=== PATIENT | female | born 1950 | race Caucasian/White ===

== ENCOUNTER 2020-01-22 07:56 | Outpatient (CLI) | payer MEDICARE, OTHER ==
[2020-01-23 12:25] LABS: SARS-CoV-2 MS2 Positive; SARS-CoV-2 N Gene Negative; SARS-CoV-2 S Gene Negative; SARS-CoV-2 by NAA Not Detected (NotDetected); SARS-CoV-2 orf1ab Negative
== END 2020-01-22 07:57 | disposition home or self-care (01) ==
LOC: LABBT 07:56
PROVIDERS: ATTEND Family Medicine
DX: H35.341 Macular cyst, hole, or pseudohole, right eye (principal); Z20.828 Contact with and (suspected) exposure to other viral communicable diseases
CPT/HCPCS: 87635; U0003

== ENCOUNTER 2020-01-27 07:24 | Day surgery (SDC) | payer MEDICARE, OTHER ==
[2020-01-23 15:54] VITALS: BMI 29.0
[~2020-01-27 07:24] MED LIST: EPINEPHrine 0.3 MG in Ophthalmic Irrigation Solution 500 ML IRR SCH
[2020-01-27] MEDS ORDERED: Phenylephrine 2.5% Ophth Soln 5 ML BOT ONE (07:40)
[2020-01-27] MEDS ORDERED: Cyclopentolate 1% Opth Drop 2 ML BOT ONE (07:41)
[2020-01-27] MEDS ORDERED: Midazolam HCl 2 mg/2 ml Vial ONE (07:50)
[2020-01-27] MEDS ORDERED: PROPOFOL 20 ML ONE (07:50)
[2020-01-27] MEDS ORDERED: Lidocaine 4% PF 5 ML AMP ONE (09:52)
[2020-01-27] MEDS ORDERED: Maxitrol 0.1% Opth Oint 3.5 GM TUBE ONE (09:52)
[2020-01-27] MEDS ORDERED: Lidocaine 1% PF 5 ML VIAL ONE (09:52)
[2020-01-27] MEDS ORDERED: Triamcinolone 40 MG/ML VIAL ONE (09:52)
[2020-01-27] MEDS ORDERED: Indocyanine Green 25 MG/10 ML VIAL ONE (09:52)
[2020-01-27] MEDS ORDERED: Bupivacaine PF 0.75% SDV 10 ML ONE (09:52)
[2020-01-27] MEDS ORDERED: CEFAZOLIN 1 GM VIAL ONE (09:52)
--- NOTE | 2020-01-27 14:50 | OP ---
DATE OF PROCEDURE: 01/27/2020 PRINCIPAL PREOPERATIVE DIAGNOSIS: Macular hole, right eye. POSTOPERATIVE DIAGNOSIS: Macular hole, right eye. PROCEDURES PERFORMED: 1. 25-gauge pars plana vitrectomy, right eye. 2. Internal limiting membrane peel/macular hole repair, right eye. 3. 15% SF6 fill, right eye. ESTIMATED BLOOD LOSS: None. SPECIMENS REMOVED: None. COMPLICATIONS: None. ANESTHESIA: MAC with sub-Tenon's block. DESCRIPTION OF PROCEDURE: The patient was identified in the preoperative holding area, where the correct eye being the right eye was marked for surgery. The patient was taken to the operating room, where MAC anesthesia was induced. The right eye was prepped and draped in the usual sterile ophthalmic fashion for surgery. A wire-clip lid speculum was placed. An inferonasal conjunctival peritomy was fashioned with Ophelia scissors for administration of sub-Tenon's block. The block consisted of 1:1 ratio of 4% lidocaine and 0.75% Marcaine. A total of 5 mL was administered. A standard 25-gauge pars plana vitrectomy platform was fashioned with trocars placed approximately 4 mm from the limbus. The infusion was noted to be within the vitreous cavity prior to being turned on to an infusion pressure of 30 mmHg. The light pipe and microvitrector were introduced in the eye under visualization of the BIOM viewing system. A careful core vitrectomy was performed followed by injection of Kenalog. A gentle posterior vitreous detachment was created followed by completion of peripheral shave vitrectomy. An ICG dye was inserted in the eye to stain the internal limiting membrane. Following staining, the Trent ILM forceps were used to peel the internal limiting membrane in a circumferential fashion about the fovea. The peel extended approximately 2 disk diameters in radius circumferentially. Following peeling, the microvitrector was reintroduced in the eye to remove any residual vitreous debris. A 360-degree scleral depressed exam of the periphery was performed and revealed no defects. An air-fluid exchange was performed followed by air-gas exchange with 15% SF6. The cannulas were sequentially removed and all sclerotomies noted to be . The subconjunctival Ancef and Kenalog were injected. The wire-clip lid speculum was removed followed by application of TobraDex ophthalmic ointment and a light patch and shield. The patient tolerated the procedure well and was taken to the outpatient recovery area in good condition. Job ID: [id number]
== END 2020-01-27 10:43 | disposition home or self-care (01) ==
LOC: SDC 07:24
PROVIDERS: ATTEND Ophthalmology Retina Specialist
PROC: 08T43ZZ Resection of Right Vitreous, Percutaneous Approach (ICD-10-PCS; principal; 2020-01-27)
PROC: 08NE3ZZ Release Right Retina, Percutaneous Approach (ICD-10-PCS; 2020-01-27)
DX: H35.341 Macular cyst, hole, or pseudohole, right eye (principal); I10 Essential (primary) hypertension; E78.5 Hyperlipidemia, unspecified; G47.30 Sleep apnea, unspecified; J30.2 Other seasonal allergic rhinitis; M81.0 Age-related osteoporosis without current pathological fracture; Z79.899 Other long term (current) drug therapy; Z88.5 Allergy status to narcotic agent
CPT/HCPCS: 67025; J0171; J0690; J2001; J2250; J2704; J3301; J3490

== ENCOUNTER 2020-02-19 06:57 | Outpatient (CLI) | payer MEDICARE, OTHER ==
[2020-02-20 15:04] LABS: SARS-CoV-2 MS2 Positive; SARS-CoV-2 N Gene Negative; SARS-CoV-2 S Gene Negative; SARS-CoV-2 by NAA Not Detected (NotDetected); SARS-CoV-2 orf1ab Negative
== END 2020-02-19 06:58 | disposition home or self-care (01) ==
LOC: LABBT 06:57
PROVIDERS: ATTEND Ophthalmology Retina Specialist
DX: H35.341 Macular cyst, hole, or pseudohole, right eye (principal); Z20.828 Contact with and (suspected) exposure to other viral communicable diseases
CPT/HCPCS: 87635; U0003

== ENCOUNTER 2020-02-24 06:26 | Day surgery (SDC) | payer MEDICARE, OTHER ==
[2020-02-23 09:47] VITALS: BMI 29.0
[2020-02-24] MEDS ORDERED: Midazolam HCl 2 mg/2 ml Vial ONE (06:34)
[2020-02-24] MEDS ORDERED: Fentanyl 100 MCG/2 ML VIAL ONE (06:34)
[2020-02-24] MEDS ORDERED: Cyclopentolate 1% Opth Drop 2 ML BOT ONE (06:55)
[2020-02-24] MEDS ORDERED: Phenylephrine 2.5% Ophth Soln 5 ML BOT ONE (06:55)
--- NOTE | 2020-02-24 10:32 | OP ---
DATE OF PROCEDURE: 02/24/2020 PRINCIPAL PREOPERATIVE DIAGNOSIS: Macular hole, right eye. POSTOPERATIVE DIAGNOSIS: Macular hole, right eye. PROCEDURES PERFORMED: 1. 25-gauge pars plana vitrectomy, right eye. 2. Macular hole repair/internal limiting membrane peel, right eye. 3. 15% C3F8 fill, right eye. ESTIMATED BLOOD LOSS: None. SPECIMENS REMOVED: None. COMPLICATIONS: None. ANESTHESIA: MAC with sub-Tenon's block. DESCRIPTION OF PROCEDURE: The patient was identified in the preoperative holding area, where the correct eye being the right eye was marked for surgery. The patient was taken to the operating room, where MAC anesthesia was induced. The right eye was then prepped and draped in usual sterile ophthalmic fashion for surgery. A wire-clip lid speculum was placed. An inferonasal conjunctival peritomy was fashioned with Ophelia scissors for administration of sub-Tenon's block. The block consisted of 1:1 ratio of 4% lidocaine and 0.75% Marcaine. A total of 5 mL was administered. A standard 25-gauge pars plana vitrectomy platform was fashioned with trocars placed approximately 4-mm from the limbus. The infusion was noted to be within the vitreous cavity prior to being turned on to infusion pressure of 30 mmHg. The light pipe and microvitrector were introduced in the eye under visualization of the BIOM viewing system. A careful limited peripheral shave vitrectomy was performed in this previously vitrectomized eye. Following vitrectomy, ICG dye was used to stain the internal limiting membrane. previous ILM peel approximately 2 disk diameters in radius circumferentially. The peel was extended approximately one disk diameter beyond the original area circumferentially. Following peeling, the microvitrector was reintroduced in the eye to remove the residual vitreous debris. An air-fluid exchange was performed followed by an air-gas exchange with 15% C3F8. The cannulas were sequentially removed with suturing of the supratemporal sclerotomy, required with 8-0 Vicryl suture. Following suturing, all sclerotomies were noted to be gas tight. Subconjunctival Ancef and Kenalog were injected. The wire-clip lid speculum was removed followed by application of TobraDex ophthalmic ointment and a light patch and shield. The patient tolerated the procedure well and was taken to outpatient recovery area in good condition. Job ID: [id number]
[2020-02-24] MEDS ORDERED: Bupivacaine PF 0.75% SDV 10 ML ONE (11:06)
[2020-02-24] MEDS ORDERED: Maxitrol 0.1% Opth Oint 3.5 GM TUBE ONE (11:06)
[2020-02-24] MEDS ORDERED: CEFAZOLIN 1 GM VIAL ONE (11:06)
[2020-02-24] MEDS ORDERED: PROPOFOL 200 MG/20 ML VIAL ONE (11:06)
[2020-02-24] MEDS ORDERED: Lidocaine 1% PF 5 ML VIAL ONE (11:06)
[2020-02-24] MEDS ORDERED: Triamcinolone 40 MG/ML VIAL ONE (11:06)
[2020-02-24] MEDS ORDERED: Indocyanine Green 25 MG/10 ML VIAL ONE (11:06)
[2020-02-24] MEDS ORDERED: Lidocaine 4% PF 5 ML AMP ONE (11:06)
== END 2020-02-24 09:55 | disposition home or self-care (01) ==
LOC: SDC 06:26
PROVIDERS: ATTEND Ophthalmology Retina Specialist
PROC: 08T43ZZ Resection of Right Vitreous, Percutaneous Approach (ICD-10-PCS; principal; 2020-02-24)
PROC: 08NE3ZZ Release Right Retina, Percutaneous Approach (ICD-10-PCS; 2020-02-24)
DX: H35.341 Macular cyst, hole, or pseudohole, right eye (principal); Z79.899 Other long term (current) drug therapy; Z88.5 Allergy status to narcotic agent
CPT/HCPCS: 67025; J0171; J0690; J2001; J2250; J2704; J3010; J3301; J3490